=== PATIENT | female | born 1965 | race African-American/Black ===

== ENCOUNTER 2023-03-19 02:56 | Emergency (ER) | payer OTHER ==
[~2023-03-19] VITALS: Ht 165.1 cm; Wt 69.0 kg
[2023-03-19 03:02] VITALS: BP 160/76; PULSE 74; RESP 18; TEMP 98.4; O2SAT 98
[2023-03-19 03:48] LABS: BASOPHILS % 0.6 % (0.0-2.0); DIFFERENTIAL COMMENT 0; HEMATOCRIT. 39.1 % (36.0-48.0); HEMOGLOBIN. 12.7 g/dL (12.0-16.0); LYMPHOCYTES % 20.5 % (20.0-50.0); MEAN CORPUSCULAR HEMOGLOBIN 25.8 pg (28.0-32.0); MEAN CORPUSCULAR HGB CONC 32.4 g/dL (31.0-37.0); MEAN CORPUSCULAR VOLUME 79.5 fL (81.0-99.0); MEAN PLATELET VOLUME 8.5 fl (7.4-10.4); NEUTROPHILS % 74.9 % (40.0-76.0); PLATELET 245 x1000/uL (130-400); RED BLOOD CELL COUNT 4.92 mill/uL (4.2-5.4); RED CELL DISTRIBUTION WIDTH 14.9 % (11.6-14.6); WHITE BLOOD COUNT 9.7 x1000/uL (4.5-11.0)
[2023-03-19 03:49] LABS: CHLORIDE 108 mEq/L (98-107); INDEX HEMOLYSI 1 (1-3); INDEX ICTERIC 1 (1-4); INDEX LIPEMIC 1 (1-3); POTASSIUM 3.6 mEq/L (3.5-5.1); SODIUM 138 mEq/L (136-145)
[2023-03-19 03:58] LABS: ALANINE AMINOTRANSFERASE 15 IU/L (13-61); ALBUMIN 3.7 g/dL (3.4-5.0); ASPARTATE AMINOTRANSFERASE 11 IU/L (15-37); BILIRUBIN TOTAL 0.5 mg/dL (0.1-1.0); CALCIUM 8.6 mg/dL (8.5-10.1); CARBON DIOXIDE 22 mEq/L (21-32); GLUCOSE 147 mg/dL (70-105); PROTEIN TOTAL 8.1 g/dL (6.0-8.3); TROPONIN I HIGH SENSITIVITY 7 ng/L (<54); UREA NITROGEN BLOOD 14 mg/dL (7-21)
[2023-03-19] MEDS ORDERED: ONDANSETRON HCL 4MG/2ML INJ IV ONE (04:15)
[2023-03-19] MEDS ORDERED: SODIUM CHLORIDE 0.9% 1,000 ML IV ONE (04:15)
[2023-03-19] MEDS ORDERED: ONDA4TAB50 MT (05:34)
[2023-03-19 06:14] LABS: TROPONIN I HIGH SENSITIVITY 8 ng/L (<54)
[2023-03-19] MEDS ORDERED: ONDANSETRON HCL 4MG/2ML INJ IV NR (07:00)
== END 2023-03-19 09:00 | disposition home or self-care (01) ==
LOC: ER 03:10
DX: R42 Dizziness and giddiness (principal); I10 Essential (primary) hypertension
CPT/HCPCS: 80053; 85025; 86850; 86900; 86901; 84484; 36415; 71045; 70450; 96361; 96374; 99285; J2405; J7030; Z7610

== ENCOUNTER 2023-12-21 01:36 | Emergency (ER) | payer OTHER ==
[~2023-12-21] VITALS: Ht 167.6 cm; Wt 78.0 kg
[~2023-12-21 01:36] MED LIST: ONDA4TAB50 MT
[2023-12-21 01:38] VITALS: O2SAT 100
[2023-12-21 03:20] LABS: BASOPHILS % 0.4 % (0.0-2.0); DIFFERENTIAL COMMENT 0; HEMATOCRIT. 39.7 % (36.0-48.0); HEMOGLOBIN. 12.6 g/dL (12.0-16.0); LYMPHOCYTES % 19.6 % (20.0-50.0); MEAN CORPUSCULAR HEMOGLOBIN 25.4 pg (28.0-32.0); MEAN CORPUSCULAR HGB CONC 31.8 g/dL (31.0-37.0); MEAN CORPUSCULAR VOLUME 79.9 fL (81.0-99.0); MEAN PLATELET VOLUME 8.4 fl (7.4-10.4); PLATELET 230 x1000/uL (130-400); RED BLOOD CELL COUNT 4.97 mill/uL (4.2-5.4); RED CELL DISTRIBUTION WIDTH 14.4 % (11.6-14.6); WHITE BLOOD COUNT 6.5 x1000/uL (4.5-11.0)
[2023-12-21 03:21] LABS: CHLORIDE 109 mEq/L (98-107); POTASSIUM 4.1 mEq/L (3.5-5.1); SODIUM 140 mEq/L (136-145)
[2023-12-21 03:22] LABS: CARBON DIOXIDE 24 mEq/L (21-32)
[2023-12-21 03:23] LABS: CALCIUM 9.4 mg/dL (8.7-10.4)
[2023-12-21 03:27] LABS: GLUCOSE 115 mg/dL (70-105); UREA NITROGEN BLOOD 13 mg/dL (9-23)
[2023-12-21 03:28] LABS: TROPONIN I HIGH SENSITIVITY 6 ng/L (3.0-34)
[2023-12-21] MEDS: HYDRALAZINE 20MG/ML VIAL IV NR (04:56)
[2023-12-21] MEDS ORDERED: MECL-217 MT (05:33)
[2023-12-21 06:08] VITALS: BP 134/68; PULSE 68; RESP 16; TEMP 97.3
== END 2023-12-21 06:13 | disposition home or self-care (01) ==
LOC: ER 01:36
DX: I10 Essential (primary) hypertension (principal); R42 Dizziness and giddiness
CPT/HCPCS: 80048; 85025; 84484; 36415; 71045; 70450; 93005; 96374; 99285; J0360; Z7610